=== PATIENT | female | born 1935 | race Caucasian/White ===

== ENCOUNTER 2018-08-07 04:47 | Observation (INO) ==
[2018-08-07 06:18] LABS: Albumin 3.3 g/dL (3.4-5.0); Anion Gap 6 meq/L (5-15); Aspartate Aminotransferase 27 U/L (15-37); Blood Urea Nitrogen 21 mg/dL (7-18); Calcium 8.4 mg/dL (8.5-10.1); Carbon Dioxide 30.1 meq/L (21.0-32.0); Chloride 107 meq/L (98-107); Glomerular Filtration Rate 70 mL/min (>89); Glucose,Random 85 mg/dL (74-106); Potassium 4.7 meq/L (3.5-5.1); Sodium 143 meq/L (136-145)
[2018-08-07 06:21] LABS: Baso % (Auto) 0.2 % (0.0-2.0); Eos # (Auto) 0.1 th/mm3 (0.0-0.4); Eos % (Auto) 0.8 % (0.0-4.0); Hematocrit 39.2 % (35.0-46.0); Lymph % (Auto) 10.1 % (9.0-44.0); Mean Corpuscular HGB Conc 33.3 % (32.0-36.0); Mean Corpuscular Hemoglobin 31.9 pg (27.0-34.0); Mean Corpuscular Volume 95.8 fL (80.0-100.0); Mean Platelet Volume 7.4 fL (7.0-11.0); Mono # (Auto) 0.9 th/mm3 (0.0-0.9); Mono % (Auto) 9.2 % (0.0-8.0); Neut # (Auto) 7.9 th/mm3 (1.8-7.7); Neut % (Auto) 79.7 % (16.0-70.0); Platelet Count 163 th/mm3 (150-450); Red Blood Count 4.09 mil/mm3 (4.00-5.30); Red Cell Distribution Width 14.7 % (11.6-17.2); White Blood Count 9.9 th/mm3 (4.0-11.0)
[2018-08-07 06:21] LABS: Alanine Aminotransferase 25 U/L (10-53); Alkaline Phosphatase 48 U/L (45-117); Total Protein 6.1 g/dL (6.4-8.2)
[2018-08-07] MEDS ORDERED: Aspirin 325 MG Tablet PO ONE (06:35)
--- NOTE | 2018-08-07 06:41 | XR ---
EXAM DATE: 08/07/2018 5:50 AM EDT AGE/SEX: 83 years / Female INDICATIONS: Chest pain today while sleeping. CLINICAL DATA: This is the patient's initial encounter. Patient reports that signs and symptoms have been present for 1 day and indicates a pain score of 5/10. MEDICAL/SURGICAL HISTORY: . Acid reflux. Hypertension. . Cervical fusion. Partial knee replace ment. COMPARISON: No prior exams available for comparison. FINDINGS: A single AP view of the chest demonstrates the lungs to be symmetrically aerated without evidence of mass, infiltrate or effusion. The cardiac silhouette is in the upper limits of normal. Osseous struc tures are intact. CONCLUSION: 1. No acute cardiopulmonary disease. Electronically signed by: Tavares Pratt MD 08/07/2018 6:40 AM EDT
--- NOTE | 2018-08-07 06:49 | ED ---
HPI General Chief Complaint: Chest Pain Stated Complaint: Medical,evax Time Seen by Provider: 08/07/18 06:15 History of Present Illness HPI narrative: 83-year-old woman presents with 2-3-hour history of severe anterior chest pain, onset about 0130 hrs., which awakened her from her sleep, running across the entire upper portion of her chest, with radiation into her back, which was quite severe, in which she has a hard time describing, other than that it was "real bad". 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 Quality of discomfort was unique, and patient reports that she never experienced pain like this before, has no history of heart disease, does have GERD and hiatal hernia, but had not eaten any unusual or aggravating foods, reporting that she had scrambled eggs for dinner at around 6 PM, and a small snack of ice cream as well as some trail mix earlier in the evening, which is customary for her, and none of which has ever given her problems in the past. She has been in good health otherwise, she has not had any preceding symptoms, no upper respiratory symptoms, no fever chills or diaphoresis. 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 No prior history of myocardial infarction or angina. No strokes. Patient has a distant history of smoking, having smoked for about 20 years, having quit approximately 40 years ago. She has no lung disease, no diagnosis of COPD. Most of patient's pain has subsided by time of arrival in the emergency department, and she is resting comfortably at the time, and only has a residual discomfort in her left lateral chest above her breast. pain is not pleuritic, not aggravated by movements, and although she walked over to the different bedroom to notify her , did not notice any change in the character of pain, with no diaphoresis, no lightheadedness, no presyncopal symptoms. Related Data Home Medications Medication Instructions Recorded Confirmed amlodipine 5 mg PO DAILY 08/07/18 08/07/18 atorvastatin 10 mg PO HS 08/07/18 08/07/18 esomeprazole magnesium 40 mg PO DAILY 08/07/18 08/07/18 prednisone 20 mg PO DAILY 08/07/18 08/07/18 propranolol 80 mg PO DAILY 08/07/18 08/07/18 spironolactone 25 mg PO DAILY 08/07/18 08/07/18 Allergies Allergy/AdvReac Type Severity Reaction Status Date / Time cefuroxime [From Ceftin] Allergy Hives Verified 08/07/18 04:58 hydrocodone Allergy Hives Verified 08/07/18 04:58 hydromorphone [From Dilaudid] Allergy Hives Verified 08/07/18 04:58 morphine Allergy Hives Verified 08/07/18 04:58 oxycodone Allergy Hives Verified 08/07/18 04:58 Penicillins Allergy Hives Verified 08/07/18 04:58 Review of Systems ROS: all other systems reviewed are negative Constitutional Reports as per HPI, Denies chills, Denies fatigue, Denies fever(s) and Denies headache(s) Cardiovascular Reports chest pain Respiratory Denies chest congestion, Denies cough, Denies pain on inspiration, Denies dyspnea, Denies stridor and Denies wheezing Gastrointestinal Denies belching (single minor belch with effort in attempt to relieve, but did not change nature of discomfort), Denies cramping, Denies dyspepsia, Denies heartburn, Denies nausea and Denies vomiting [facility] Medical History Medical History Acid reflux (Acute) Hypertension (Acute) Surgical History Surgical History History of partial knee replacement (Acute) Social History Social History Substance History: No History of Abuse Second Hand Smoke Exposure: No Smoking Status: Former smoker How Often Do You Have a Drink Containing Alcohol: Monthly or less Recent Travel in [facility] within the Last 8 Weeks: No Recent Out of Country Travel within the Last 8 Weeks: No Immunization History Tetanus Immunization: Unsure Exam Narrative Exam Narrative: GENERAL: Elderly female, awake and oriented, afebrile, vital signs stable with systolic hypertension, no acute distress, speaks easily, unlabored breathing, moves easily about on stretcher. SKIN: Focused skin assessment warm/dry. HEAD: Atraumatic. Normocephalic. EYES: Pupils equal and round. No scleral icterus. No injection or drainage. ENT: No nasal bleeding or discharge. Mucous membranes pink and moist. NECK: Trachea midline. No JVD. CARDIOVASCULAR: Regular rate and rhythm. No murmur appreciated. CHEST: mild to moderate muscular tenderness left lateral pectoralis above breast, does not especially reproduce original discomfort. No bony tenderness RESPIRATORY: No accessory muscle use. Clear to auscultation. Breath sounds equal bilaterally. GASTROINTESTINAL: Abdomen soft, non-tender, nondistended. No rebound or guarding. Hepatic and splenic margins not palpable. BACK: Nontender to palpation, no CVA tenderness to percussion MUSCULOSKELETAL: No obvious deformities. No clubbing. No cyanosis. No edema. NEUROLOGICAL: Awake and alert. No obvious cranial nerve deficits. Motor grossly within normal limits. Normal speech. PSYCHIATRIC: Appropriate mood and affect; insight and judgment normal. Course Initial Documented Vital Signs Temperature 98.1 F 08/07/18 04:50 Pulse Rate 62 08/07/18 04:50 Respiratory Rate 16 08/07/18 04:50 Blood Pressure 208/92 H 08/07/18 04:50 Pulse Oximetry 98 08/07/18 04:50 Last Documented Vital Signs Temperature 98.1 F 08/07/18 12:55 Pulse Rate 59 L 08/07/18 13:53 Respiratory Rate 20 08/07/18 12:55 Blood Pressure 154/67 H 08/07/18 13:53 Pulse Oximetry 97 08/07/18 12:55 Medical Decision Making MDM Narrative Medical decision making narrative: This 83-year-old woman presents with new onset of a distinct and severe upper chest and back pain, which awakened her from her sleep, and lasting for a couple of hours. She has no prior history of myocardial infarction or other known heart disease, and although she has a history of GERD, symptoms were not typical of GERD, and not temporally related to her diet. Symptoms subsided on their own, and patient has had negligible pain since arrival in the emergency department, but symptoms are still worrisome for possible acute coronary syndrome. Her first set of labs are negative, but patient will be admitted to the chest pain unit for further observation and serial testing. Medical Screen Exam Complete: Yes Emergency Medical Condition: Yes Lab Data Result diagrams: 08/07/18 06:10 08/07/18 05:50 Lab Results 10/01/18 10/01/18 Range/Units 05:50 06:10 WBC 9.9 (4.0-11.0) th/mm3 RBC 4.09 (4.00-5.30) mil/mm3 Hgb 13.0 (11.6-15.3) gm/dL Hct 39.2 (35.0-46.0) % MCV 95.8 (80.0-100.0) fL MCH 31.9 (27.0-34.0) pg MCHC 33.3 (32.0-36.0) % RDW 14.7 (11.6-17.2) % Plt Count 163 (150-450) th/mm3 MPV 7.4 (7.0-11.0) fL Neut % (Auto) 79.7 H (16.0-70.0) % Lymph % (Auto) 10.1 (9.0-44.0) % [place] % (Auto) 9.2 H (0.0-8.0) % Eos % (Auto) 0.8 (0.0-4.0) % Baso % (Auto) 0.2 (0.0-2.0) % Neut # (Auto) 7.9 H (1.8-7.7) th/mm3 Lymph # (Auto) 1.0 (1.0-4.8) th/mm3 [place] # (Auto) 0.9 (0.0-0.9) th/mm3 Eos # (Auto) 0.1 (0.0-0.4) th/mm3 Baso # (Auto) 0.0 (0.0-0.2) th/mm3 WBC Differential . Differential Comment Auto diff final Sodium 143 (136-145) meq/L Potassium 4.7 (3.5-5.1) meq/L Chloride 107 (98-107) meq/L Carbon Dioxide 30.1 (21.0-32.0) meq/L Anion Gap 6 (5-15) meq/L BUN 21 H (7-18) mg/dL Creatinine 0.79 (0.50-1.00) mg/dL Estimated GFR 70 L (>89) mL/min Random Glucose 85 (74-106) mg/dL Calcium 8.4 L (8.5-10.1) mg/dL Total Bilirubin 0.5 (0.2-1.0) mg/dL AST 27 (15-37) U/L ALT 25 (10-53) U/L Alkaline Phosphatase 48 (45-117) U/L Troponin I Less than 0.02 L (0.02-0.05) ng/mL Total Protein 6.1 L (6.4-8.2) g/dL Albumin 3.3 L (3.4-5.0) g/dL Imaging Data Radiologist's impression: Chest X-Ray 08/07/18 05:50 CONCLUSION: 1. No acute cardiopulmonary disease. Myocardial Perfusion Scan Nuc Med 08/07/18 09:47 CONCLUSION: 1. Negative examination. ECG Data EKG Prior to Arrival: No Attestation: I personally reviewed and interpreted this ECG as follows: Interpretation: EKG taken at 0456 hours is unremarkable. Baseline rhythm is sinus at 61 bpm. QRS morphology is normal, with QRS interval at 73 ms, and QRS axis at [address] segments and T waves are normal with no significant elevations or depressions , and upright T waves throughout. No ectopy is noted. OH interval is 161 ms QT interval is 379 ms corrected. No prior tracings are available for comparison. Discharge Plan Discharge Disposition Patient Disposition: 30 Still Patient Discharge Condition Condition: Stable Discharge Order Discharge Orders: Discharge Order (Routine); Ordered 08/07/18 Ordered By: Arsenio Dong Discharge Details Diagnosis: Atypical chest pain Physicians Team ED Provider: Raul Wade Primary Care Provider: Primary Care Stephanie Escalera Attending Provider: Mario Alberto Estrada Status ED Status: Left Department Discharge Information Discharge Date/Time: 08/07/18 08:20
--- NOTE | 2018-08-07 10:09 | P.HPCA ---
History of Present Illness Primary Care Physician: No Primary Care Physician Chief Complaint: Chest pain History of Present Illness: This is an 83-year-old female that presents to ED via [facility] with a complaint of waking up about 130 this morning with a chest discomfort. Points to the center of her chest. Denies shortness breath, nausea, diaphoresis. States she suffers from heartburn and gas issues and took a Gas-X but did not seem to help the symptoms. And it lasting about 2 or 3 hours. She no longer smokes, states she quit smoking about 40 years ago. 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 She had nuclear stress test a few years ago that also she states was normal. History of hypertension and GERD. Denies CAD, hyperlipidemia, and diabetes. There is family history of CAD. Quit smoking cigarettes 40 years ago after smoking for about 20 years. - Diagnosis (1) Chest pain (2) Hypertension (3) GERD (gastroesophageal reflux disease) Review of Systems General: Patient denies fevers, chills, and recent travel. HEENT: Patient denies headache, sore throat, difficulty swallowing. Cardiovascular: Has the chest discomfort as mentioned above. Denies sensation of heart beating rapidly or irregularly. No syncope. Respiratory: Denies shortness of breath or inspirational chest discomfort. Denies coughing wheezing or hemoptysis. GI: Patient denies nausea, vomiting, diarrhea, abdominal pain, bloody stools. Musculoskeletal: Patient denies joint pain or edema. Denies calf pain or edema. Neurovascular: Patient denies numbness, tingling, weakness in extremities. Denies headache. Endocrine: Denies polyuria and polydipsia. Hematologic: Denies easy bruising. Skin: Denies rash or itching. PMFSH - History History Provided By: Patient - Medical History Medical History: Medical History (Last Updated 08/07/18 @ 04:56 by Angela Dennison) Acid reflux Hypertension - Surgical History Surgical History: Surgical History (Last Updated 08/07/18 @ 04:56 by Angela Dennison) History of partial knee replacement - Tobacco History Second Hand Smoke Exposure: No Tobacco Use In Past 30 Days: No Smoking Status: Former smoker - Alcohol History How Often Do You Have a Drink Containing Alcohol: Monthly or less - Substance Use History Substance History: No History of Abuse - Travel History Recent Travel in the [place] Within the Last 8 Weeks: No Recent Travel Out of the Country Within the Last 8 Weeks: No - Immunization History Tetanus Immunization: Unsure Medications and Allergies Allergies Allergy/AdvReac Type Severity Reaction Status Date / Time cefuroxime [From Ceftin] Allergy Hives Verified 08/07/18 04:58 hydrocodone Allergy Hives Verified 08/07/18 04:58 hydromorphone [From Dilaudid] Allergy Hives Verified 08/07/18 04:58 morphine Allergy Hives Verified 08/07/18 04:58 oxycodone Allergy Hives Verified 08/07/18 04:58 Penicillins Allergy Hives Verified 08/07/18 04:58 Home Medications Medication Instructions Recorded Confirmed Type atorvastatin 10 mg PO HS 08/07/18 08/07/18 History esomeprazole magnesium 40 mg PO DAILY 08/07/18 08/07/18 History spironolactone 25 mg PO DAILY 08/07/18 08/07/18 History Exam Vital signs: Vital Signs 08/07/18 04:50 08/07/18 06:43 08/07/18 07:00 Temperature 98.1 F Pulse Rate 62 62 58 L Respiratory Rate 16 16 18 Blood Pressure 208/92 H 195/81 H 189/114 H Pulse Oximetry 98 98 98 08/07/18 07:15 08/07/18 07:30 08/07/18 07:45 Temperature Pulse Rate 60 60 56 L Respiratory Rate 19 Blood Pressure 199/85 H 149/73 H 135/64 Pulse Oximetry 08/07/18 09:00 Temperature 97.6 F Pulse Rate 57 L Respiratory Rate 18 Blood Pressure 141/65 H Pulse Oximetry 96 Intake & Output 08/06/18 08/07/18 08/07/18 18:59 06:59 18:59 Weight 80.739 kg Narrative: GENERAL: This is a well-nourished, well-developed patient, in no apparent distress. Patient speaks in clear complete sentences. Patient is pleasant. HEENT: Head is atraumatic and normocephalic. Neck is supple without lymphadenopathy and trachea is midline. No JVD or carotid bruits. CARDIOVASCULAR: Regular rate and rhythm without murmurs, gallops, or rubs. RESPIRATORY: Clear to auscultation. Breath sounds equal bilaterally. No wheezes , rales, or rhonchi. Chest wall is nontender. No use of accessory muscles. GASTROINTESTINAL: Abdomen is nontender, nondistended. Abdomen soft. No obvious pulsatile mass or bruit. No CVA tenderness. Strong femoral pulses bilaterally. Normal bowel sounds in all quadrants. MUSCULOSKELETAL: Patient is moving upper and lower extremities freely. No calf tenderness or edema, no Homans sign. Strong pulses in upper and lower extremities. NEUROLOGICAL: Patient is alert and oriented. Cranial nerves 2-12 are grossly intact. No focal deficits and speech is clear. SKIN: No rash and turgor is normal. Results 08/07/18 06:10 08/07/18 05:50 Cardiac Enzymes 08/07/18 Range/Units 05:50 AST 27 (15-37) U/L Troponin I Less than 0.02 L (0.02-0.05) ng/mL CBC 08/07/18 Range/Units 06:10 WBC 9.9 (4.0-11.0) th/mm3 RBC 4.09 (4.00-5.30) mil/mm3 Hgb 13.0 (11.6-15.3) gm/dL Hct 39.2 (35.0-46.0) % Plt Count 163 (150-450) th/mm3 Neut # (Auto) 7.9 H (1.8-7.7) th/mm3 Lymph # (Auto) 1.0 (1.0-4.8) th/mm3 [place] # (Auto) 0.9 (0.0-0.9) th/mm3 Eos # (Auto) 0.1 (0.0-0.4) th/mm3 Baso # (Auto) 0.0 (0.0-0.2) th/mm3 Comprehensive Metabolic Panel 08/07/18 Range/Units 05:50 Sodium 143 (136-145) meq/L Potassium 4.7 (3.5-5.1) meq/L Chloride 107 (98-107) meq/L Carbon Dioxide 30.1 (21.0-32.0) meq/L BUN 21 H (7-18) mg/dL Creatinine 0.79 (0.50-1.00) mg/dL Calcium 8.4 L (8.5-10.1) mg/dL AST 27 (15-37) U/L ALT 25 (10-53) U/L Alkaline Phosphatase 48 (45-117) U/L Total Protein 6.1 L (6.4-8.2) g/dL Albumin 3.3 L (3.4-5.0) g/dL Intake and Output 08/06/18 08/07/18 08/07/18 22:59 06:59 14:59 Other: Weight 80.739 kg - Imaging and Cardiology Imaging: Impressions Chest X-Ray 08/07/18 05:50 CONCLUSION: 1. No acute cardiopulmonary disease. EKG interpretations - EKG EKG shows: sinus rhythm (EKG is sinus rhythm without significant ST segment depressions or elevations.) Caprini VTE Risk Assessment Caprini VTE Risk Assessment: Moderate/High Risk (score >= 2) Caprini Risk Assessment Model: Point Value = 1 Point Value = 2 Point Value = 3 Point Value = 5 Age 41-60 Minor surgery BMI > 25 kg/m2 Swollen legs Varicose veins or History of unexplained or recurrent spontaneous Oral contraceptives or hormone replacement Sepsis (< 1 month) Serious lung disease, including pneumonia (< 1 month) Abnormal pulmonary function Acute myocardial infarction Congestive heart failure (< 1 month) History of inflammatory bowel disease Medical patient at bed rest Age 61-74 Arthroscopic surgery Major open surgery (> 45 min) Laparoscopic surgery (> 45 min) Malignancy Confined to bed (> 72 hours) Immobilizing plaster cast Central venous access Age >= 75 History of VTE Family history of VTE Factor V Leiden Prothrombin [id number] Lupus anticoagulant Anticardiolipin antibodies Elevated serum homocysteine Heparin-induced thrombocytopenia Other congenital or acquired thrombophilia Stroke (< 1 month) Elective arthroplasty Hip, pelvis, or leg fracture Acute spinal cord injury (< 1 month) Prophylaxis Regimen: Total Risk Factor Score Risk Level Prophylaxis Regimen 0-1 Low Early ambulation 2 Moderate Order ONE of the following: *Sequential Compression Device (SCD) *Heparin 5000 units SQ BID 3-4 Higher Order ONE of the following medications: *Heparin 5000 units SQ TID *Enoxaparin/Lovenox 40 mg SQ daily (WT < 150 kg, CrCl > 30 mL/min) *Enoxaparin/Lovenox 30 mg SQ daily (WT < 150 kg, CrCl > 10-29 mL/min) *Enoxaparin/Lovenox 30 mg SQ BID (WT < 150 kg, CrCl > 30 mL/min) AND/OR *Sequential Compression Device (SCD) 5 or more Highest Order ONE of the following medications: *Heparin 5000 units SQ TID (Preferred with Epidurals) *Enoxaparin/Lovenox 40 mg SQ daily (WT < 150 kg, CrCl > 30 mL/min) *Enoxaparin/Lovenox 30 mg SQ daily (WT < 150 kg, CrCl > 10-29 mL/min) *Enoxaparin/Lovenox 30 mg SQ BID (WT < 150 kg, CrCl > 30 mL/min) AND *Sequential Compression Device (SCD) Assessment and Plan - Assessment (1) Chest pain Code(s): R07.9 - Status: Acute (2) Hypertension Code(s): I10 - Status: Acute (3) GERD (gastroesophageal reflux disease) Code(s): K21.9 - Status: Acute - Plan * Chest pain: Patient had first cardiac enzyme and EKG. Seen by Dr. Chris Gardiner of cardiology and chest pain center. Patient was initially little reluctant of doing a chemical stress test and would rather try a treadmill. However she felt a little dizzy while walking to the stress room in his point would for Lexiscan. This has been ordered and is pending. Disposition pending results of Lexiscan. 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 Return to ED for interval issues. * Hypertension: We are waiting list of medications. This will be continued. * GERD: We will continue medication. Patient is stable at this time. She is agreeable to this plan. H&P: Quality - VTE Deep Vein Thrombosis/Pulmonary Embolism Present on Admission: No
[2018-08-07] MEDS ORDERED: Regadenoson Inj 0.4 MG/5 ML Syringe IV.PUSH ONE (11:29)
[2018-08-07] MEDS ORDERED: Spironolactone 25 MG Tablet PO SCH (12:00)
[2018-08-07] MEDS ORDERED: amLODIPine 5 MG Tablet PO SCH (12:00)
[2018-08-07] MEDS ORDERED: Propranolol LA 80 MG Capsule PO SCH (12:30)
--- NOTE | 2018-08-07 12:54 | NM ---
EXAM DATE: 08/07/2018 10:20 AM EDT AGE/SEX: 83 years / Female INDICATIONS:Angina. . Center chest pain. CLINICAL DATA: This is the patient's initial encounter. Patient reports that signs and symptoms have been present for 1 day and indicates a pain score of 3/10. MEDICAL/SURGICAL HISTORY: Hypertension. . Knee surgery. COMPARISON: No prior exams available for comparison. DOSE: 8.3 mCi Tc 99m Myoview at rest 26.3 mCi [id number] at stress 0.4 mg Lexiscan STRESS SYMPTOMS: Weird feeling and nausea. EJECTION FRACTION: >70 % TECHNIQUE: The patient underwent pharmacologic stress with infusion of prescribed dose. Continuous ECG tracing was monitored during stress. Gated SPECT imaging was performed after stress and conventi onal SPECT imaging was performed at rest. The examination was performed on a SPECT/CT scanner, both attenuation and non-corrected datasets were reviewed. FINDINGS: Distribution: The maximum perfused segment at stress is in the lateral wall. Perfusion Study: The pattern of perfusion at stress is within normal limits. Gated Study: There are intact wall motion and wall thickening without hypokinetic or dyskinetic segm ents. The ejection fraction is calculated at >70%. RISK CATEGORY: Low risk (less than 1% annual mortality rate) CONCLUSION: 1. Negative examination. Electronically signed by: Pramod Chinchilla MD 08/07/2018 12:53 PM EDT
[2018-08-07 12:58] VITALS: RESP 20; TEMP 98.1; O2SAT 97
[2018-08-07 13:54] VITALS: BP 154/67; PULSE 59
--- NOTE | 2018-08-07 15:09 | ECG ---
Date Performed: 08/07/2018 Time Performed: 04:56:46 PTAGE: 83 years EKG: Sinus rhythm POSSIBLE RIGHT VENTRICULAR CONDUCTION DELAY BORDERLINE ECG NO PREVIOUS TRACING DOCTOR: Chris Gardiner Interpretating Date/Time 08/07/2018 15:08:20
--- NOTE | 2018-08-07 15:13 | TR ---
Date Performed: 08/07/2018 Time Performed: 11:27:38 DOCTOR: Chris Gardiner DRUG LIST: CLINICAL HISTORY: REASON FOR TEST: REASON FOR ENDING: OBSERVATION: CONCLUSION: COMMENTS: Lexiscan stress test was performed under standard four minute protocol. Radionuclide was injected one minute prior to ending the test. No electrocardiographic abormalities were present t o suggest ischemia. Nuclear imaging and interpretation are pending.
== END 2018-08-07 14:28 | disposition home or self-care (01) ==
LOC: NEPC 04:47 → NEDA 04:47 → NEPFCDU 08:27